=== PATIENT | female | born 1970 | race Caucasian/White ===

== ENCOUNTER → 2017-09-25 | Outpatient (CLI) | payer OTHER ==
[~2017-09-25] VITALS: Ht 177.8 cm; Wt 74.4 kg
[~2017-09-25] MED LIST: ALPRAZOLAM 0.50.5 M1 PO; AUGMENTIN 875-1 EACH PO; BACLOFEN20 MG PO; CIPROFLOXACIN500 M1 PO; CYMBALTA60 MG PO; ESTRODIAL PO; FLEXERIL PO; HYDROCODON-ACE1 EAC8 PO; IBUPROFEN 600600 M1 PO; KADIAN30 MG PO; LIORESAL 10 MG10 MG PO; MACROBID 100 M100 M1 PO; MS CONTIN30 MG PO; NABUMETONE 500500 M1 PO; NORCO 5-325 TA1 EACH PO; PERCOCET 5-3251 EACH PO; PROGESTERONE100 MG PO; TIZANIDINE HCL2 M1 PO; TIZANIDINE HCL4 M1 PO; TOPAMAX200 MG PO; ZOFRAN ODT4 MG PO
--- NOTE | ~2017-09-25 | HPC ---
[facility] [place] [address] PAIN MANAGEMENT CONSULTATION Name: DIEGOBENJIJAMEL EMILEE [facility] #: [facility] [id number] Admission: 09/25/17 Attend Phys: Kalen Avitia DO Discharge: Date of : 68 Report #: [id number] THIS REPORT FOR: //name// CC: Kalen Medeiros DO DATE OF SERVICE: 09/25/2017 REFERRING PHYSICIAN: Anson Medeiros D.O. CHIEF COMPLAINT: Axial back pain. HISTORY OF PRESENT ILLNESS: As you know, the patient is a 47-year-old female who returns today in followup visit with recurrent low back pain. As you are aware, the patient has had a lumbar fusion at the L4-L5 level. This has left the patient with increased arthritic changes at the L5-S1 level, the L3-L4 level and the L2-L3 level. She has done very well with medial branch nerve blocks, radiofrequency lesioning getting up to near a year of improvement in symptoms with radiofrequency lesioning. She returns with recurrent low back pain. No inciting injury or trauma. She is now placing pain score around the 8/10. She has returned per the request of her PCP to begin the process of radiofrequency lesioning. She also wishes to discuss more definitive treatment options. ALLERGIES: FENTANYL. CURRENT MEDICATIONS: Tizanidine 2 mg 3 times a day, baclofen 10 mg twice a day, MS Contin 30 mg twice a day, nabumetone 500 mg once a day, alprazolam 0.5 mg 3 times a day, progesterone micronized 100 mg once a day, estradiol 0.5 mg once a day, hydrocodone/acetaminophen 7.5/325 three times a day, topiramate 200 mg once a day and duloxetine 60 mg once a day. SOCIAL HISTORY: The patient reports she is a continued smoker. Denies IV or illicit drug use. Denies any chronic alcohol use. She is unaccompanied today. IMAGING DATA: No new imaging available. PQRS: The patient has osteoarthritis. No rheumatoid arthritis. She is placing pain score today at 8/10. She is not a fall risk, has not had a fall last 3 months. She is not on blood thinners. She is not treated for hypertension. She has been on opioids for very long period of time. She has a moderate opioid risk assessment for addiction. Functional assessment tool, pain impact score shows 57/70, severe interference. PHYSICAL EXAMINATION: VITAL SIGNS: Blood pressure 106/70, pulse 66 and respiratory rate [address] [address] PAIN MANAGEMENT CONSULTATION Name: JAMEL BROWN Room #: REG [facility].#: [id number] Admission: 09/25/17 Attend Phys: Kalen Avitia DO Discharge: Date of : 68 Report #: [id number] unlabored. The patient is 98% on room air. Height 5 feet 10 inches tall, weight 164 pounds and BMI calculated 23.5. GENERAL: Well-developed, well-nourished, well-hydrated 47-year-old female, appears older than stated age, smells of tobacco smoke, placing current pain score at 8/10. HEENT: Normocephalic and atraumatic. Pupils equal, round and reactive to light. Extraocular muscles are intact. Speech fluent. LUNGS: Decreased breath sounds bilaterally. Prolonged expiratory phase. CARDIOVASCULAR: Regular. No appreciable gallop or rub. ABDOMEN: Soft and nontender. EXTREMITIES: Show no clubbing, no cyanosis and no edema. MUSCULOSKELETAL: Seated straight leg raising negative. Supine straight leg raising negative. Earnestine's test negative. Modified Gaenslen's positive for axial low back pain. There is palpatory tenderness over the lower lumbar region. There is restriction of motion with forward flexion, extension and lateral flexion. ASSESSMENT: 1. Lumbosacral spondylosis without radiculopathy. 2. Myofascial pain. 3. Chronic intractable pain. PLAN: 1. The patient returns today in followup visit reporting pain score around 8/10. She reports near 100% improvement in overall pain with the medial branch nerve blocks and radiofrequency lesioning from nearly 1 year 2 months ago. She returns with progressively worsening low back pain due to facet arthropathy. We have discussed the possibility of having the patient undergo repeat medial branch nerve blocks. If these are effective, then undergo staged radiofrequency lesioning with lesioning to begin on the right side, her most problematic side and then progressing to the left side. This will be done over the next couple of weeks. This will be based on the fact that the patient shows significant improvement with medial branch nerve blocks today. After this discussion of the potential treatment options provided through our services, we also discussed the possibility of having the patient undergo rhizotomy, which would provide a long-term benefit completely ablating the medial branch nerves surgically. This will be done with her neurosurgeon. After this long discussion, the patient chose to begin with the radiofrequency lesioning. If this is ineffective, then move forward with potential rhizotomy. The patient was consented and will perform medial branch nerve blocks in the lumbar region. We have advised the patient of the risks and benefits of the procedure. These risks include but are not necessarily limited to bleeding, bruising, infection, worsening pain, no relief of pain, also risk of temporary or permanent muscle weakness, temporary or permanent nerve damage, possible paralysis and . The patient states understood and wished to proceed. 2. No medication changes were made at today's visit. The patient will continue [address] [address] PAIN MANAGEMENT CONSULTATION Name: Lacey BROWNVEJULISSA HEBERT Room #: REG Birgit Whipple.#: [id number] Admission: 09/25/17 Attend Phys: Kalen Avitia DO Discharge: Date of : 68 Report #: [id number] current medical therapy as previously prescribed. 3. The patient will return to our clinic in 1 week to begin radiofrequency lesioning, will be lesioning the right side initially at the L2 level, L3 level and the L5 level to address her ongoing issues and 2 weeks later, we will follow with the left side. PROCEDURE NOTE DESCRIPTION OF PROCEDURE: Bilateral L2-L3, L3-L4 and L5-S1 lumbar medial branch nerve blocks. This is the first of 2 diagnostic medial branch blocks on the right and left side that the patient is undergoing. After obtaining written consent, the patient was taken back to the fluoroscopy suite and placed in a prone position on the fluoroscopy table with a pillow under the abdomen to decrease the lumbar lordosis. The skin overlying the lumbosacral area was prepped and draped in an aseptic fashion. The L3 transverse process corresponding the L2 medial branch nerve, L4 transverse process corresponding the L3 medial branch nerve on the bilateral side was visualized under AP fluoroscopy. The skin and subcutaneous tissue overlying the target sites of injection 22-gauge 3-1/2 inch was anesthetized using 2 mL of 1% lidocaine. A bent spinal needle with a 0.3 mL tip was advanced under fluoroscopic guidance using a superior to inferior and lateral to medial approach to the dorsal, superior and medial aspect of the base of the transverse process. The needles were then directed ventral, medial and caudad to reach the target locations. An oblique view facilitated needle placement with properly positioned needles in the middle of the "eye" of the Sung dog for the medial branch blocks. At each site the needle rested on periosteum. After negative aspiration for heme or CSF, 0.5 mL of Omnipaque dye was injected at each site under live fluoroscopy, demonstrating absence of vascular uptake. After negative aspiration for heme or CSF, bupivacaine of 0.5% was slowly injected at each site to avoid forcing the solution away from the target points. The needles were then removed. The L5 dorsal ramus block on the right and left sides were performed using a slightly oblique approach under fluoroscopic guidance, placing the needle within the groove between the sacral site and the superior articular process of S1. The needle rested on periosteum. After negative aspiration for heme or CSF, 0.3 mL of Omnipaque dye was injected at under live fluoroscopy, demonstrating absence of vascular uptake. After negative aspiration for heme or CSF, 0.5% of bupivacaine 0.5% was slowly injected to avoid forcing the solution away from the target point. The needle was then removed. Sterile bandages were placed over the injection site. There were no apparent complications. The patient tolerated the procedure well [address] [address] PAIN MANAGEMENT CONSULTATION Name: DIEGOJAMEL LEBLANC EMILEE Room #: REG [facility] Barnes#: [id number] Admission: 09/25/17 Attend Phys: Kalen Avitia DO Discharge: Date of : 68 Report #: [id number] and was carefully escorted to the recovery room in stable condition. The VAS was 8/10 before the procedure and 3/10, 10 minutes after the procedure. After meeting discharge criteria, the patient was discharged home. By: [id number] Kalen Avitia DO /marzena
[2017-09-25 08:32] VITALS: BP 106/70
== END | disposition home or self-care (01) ==
LOC: PAIN 06:56
DX: M47.817 Spondylosis without myelopathy or radiculopathy, lumbosacral region (principal); M79.1 Myalgia; G89.29 Other chronic pain; Z79.899 Other long term (current) drug therapy; Z88.8 Allergy status to other drugs, medicaments and biological substances; M19.90 Unspecified osteoarthritis, unspecified site; F17.200 Nicotine dependence, unspecified, uncomplicated

== ENCOUNTER → 2017-10-02 | Outpatient (CLI) | payer OTHER ==
[~2017-10-02] VITALS: Ht 177.8 cm; Wt 74.4 kg
--- NOTE | ~2017-10-02 | HPC ---
[facility] [place] [address] PAIN MANAGEMENT CONSULTATION Name: JAMEL BROWNN Room #: REG [facility].Aman.#: [id number] Admission: 10/02/17 Attend Phys: Kalen Avitia DO Discharge: Date of : 68 Report #: [id number] THIS REPORT FOR: //name// CC: Kalen Medeiros DO DATE OF SERVICE: 10/02/2017 REFERRING PHYSICIAN: Anson Medeiros DO CHIEF COMPLAINT: Axial back pain. HISTORY OF PRESENT ILLNESS: As you know, the patient is a 47-year-old female who returns today in followup visit having undergone bilateral L2, L3 and L5 medial branch nerve blocks at last visit. She reports near 100% improvement in overall pain lasting for hours. She returns today to begin radiofrequency lesioning of these same medial branch nerves. She wishes to start on the right side today as this is the main pain generator and then move towards the left side 2 weeks from today. She indicates today pain level of 5/10. She returns to undergo the procedure in hopes of improving pain. ALLERGIES: FENTANYL. CURRENT MEDICATIONS: Tizanidine, baclofen, MS Contin, nabumetone, alprazolam, progesterone, estradiol, hydrocodone, topiramate, and duloxetine. SOCIAL HISTORY: The patient is a continued smoker. She denies IV or illicit drug use. Denies any chronic alcohol use. She is unaccompanied today. IMAGING: No new imaging available. PQRS: Positive for osteoarthritis. Negative for rheumatoid arthritis. She is placing pain score today 5/10. She is not a fall risk, has not had a fall in the last 3 months. She is not on blood thinner. She is not treated for hypertension. She has been on opiates for greater than 6 weeks. She has a moderate risk of opioid abuse. Her functional assessment pain impact score 57/70. PHYSICAL EXAMINATION: VITAL SIGNS: Blood pressure 104/69, pulse 77, respiratory rate 16 and unlabored, the patient is 98% on room air, height 5 feet 10 inches tall, weight 164 pounds, BMI calculated 23.5. GENERAL: Well-developed, well-nourished, well-hydrated 47-year-old female, appearing her stated age, placing current pain score at 5/10. HEENT: Normocephalic, atraumatic. Pupils are equal, round, and reactive to [address] [address] PAIN MANAGEMENT CONSULTATION Name: JAMEL BROWN Room #: REG [facility] Sarabjit.#: [id number] Admission: 10/02/17 Attend Phys: Kalen Avitia DO Discharge: Date of : 68 Report #: [id number] light. EXTREMITIES: Show no clubbing, no cyanosis, and no edema. MUSCULOSKELETAL: Seated straight leg raising negative. Supine straight leg raising negative. Rashel's test negative. Modified Gaenslen's positive for axial low back pain. Ankle clonus negative. Babinski is negative. Restriction of motion with forward flexion, extension, and lateral flexion of the lumbar spine, well-healed surgical scars. ASSESSMENT: 1. Lumbosacral spondylosis without radiculopathy. 2. Myofascial pain. 3. Chronic intractable pain. PLAN: 1. The patient returns today in followup visit having noted 100% improvement in overall pain with the medial branch nerve blocks provided at last visit. She reports this lasted for hours and then slowly returned to normal. She returns requesting to begin RFA of the medial branch nerves on the right with a 2-week followup for RFA on the left. The patient has been advised of the risks and benefits of the procedure, states understood and wished to proceed. 2. No medication changes were made at today's visit. The patient will continue current medical therapy as previously prescribed. 3. We will see the patient back in followup visit in 2 weeks to undergo radiofrequency lesioning on the left side. PROCEDURE NOTE DESCRIPTION OF PROCEDURE: Right L2, L3, and L5 medial branch radiofrequency ablations. Procedure was explained and informed consent was obtained from the patient. The patient was informed of the risks of the procedure including infection, bleeding, nerve damage, failure to produce pain relief and postoperative discomfort lasting for several weeks. After obtaining written consent, the patient was then taken to the fluoroscopy suite, placed in prone position with pillow under abdomen to decrease lumbar lordosis. Skin overlying the lumbosacral area then prepped and draped in aseptic fashion. AP imaging of the lumbar spine was used to identify the L2 through L5 vertebral bodies and the sacral ala. Target location on the right side of the L3 vertebral body corresponding to the L3 medial branch nerve and the L4 vertebral body corresponding to the L3 medial branch nerve were established. Using a 25-gauge 1-1/4-inch needle, skin wheals were placed at the junction of the transverse process and the respective superior articular process with 1 mL of 1% lidocaine. We were careful to anesthetize skin and not the deep tissues. The radiofrequency lesioning needles were then brought into position under [address] [address] PAIN MANAGEMENT CONSULTATION Name: JAMEL BROWN Room #: REG [facility] Barnes#: [id number] Admission: 10/02/17 Attend Phys: Kalen Avitia DO Discharge: Date of : 68 Report #: [id number] fluoroscopic guidance using a superior to inferior and lateral to medial approach to the dorsal superior and medial aspect to the base of the transverse processes. The needles were then directed caudally to reach target locations. Oblique views facilitated needle placement. At each site, needles rested on periosteum. Touching the bone initially assured the needles were not placed too deeply. We next anesthetized the area just overlying the L5-S1 right side of facet. We used 1 mL of 1% lidocaine. We were careful not to anesthetize the deep tissues. The radiofrequency lesioning needle was then brought into position on the right side using a superior to inferior and lateral to medial approach, placing the needle between the groove, between the sacral ala and the superior articular process of S1. Needle rested on periosteum. Stimulation was performed at each level once the cannulas were in position. Sensory stimulation performed at L2, L3 and L5 levels on the right side with good impedance. Medial branch nerves were noted to be stimulated at 0.4, 0.4 and 0.4 respectively. Impedance was noted at 150, 130 and 170 respectively. Good stimulation of the lumbar and buttock region was elicited indicating correct alignment with the posterior primary ramus. Absence of motor fasciculation noted at 3 volts 2 Hz stimulation during testing of the L2, L3, and L5 medial branch nerves respectively. Following this affirmation of dissociation between sensory and motor stimulation, negative aspiration noted at all levels. Next, 1 mL of bupivacaine 0.5% was injected. After a 90-second delay, lesions were performed at 80 degrees Celsius for 90 seconds. [place] were then cooled. They were subsequently adjusted and the stylets were removed. Next, 1 mL of a solution containing 1 mL 40 mg per mL, 40 mg total triamcinolone and 2 mL bupivacaine 0.5% was injected slowly. [place] were flushed with 0.5 mL of lidocaine 1% and removed sequentially. At the end of the procedure, the patient was noted to be able to move all 4 extremities purposefully. The patient tolerated the procedure well, carefully escorted to the recovery room in stable condition. No apparent complications. After meeting discharge criteria, the patient discharged home. <ELECTRONICALLY SIGNED> By: Kalen Avitia DO 10/03/17 [id number] Kalen Avitia DO /nt
[2017-10-02 09:11] VITALS: BP 104/69
== END | disposition home or self-care (01) ==
LOC: PAIN 07:16
DX: M47.817 Spondylosis without myelopathy or radiculopathy, lumbosacral region (principal); G89.29 Other chronic pain; M79.1 Myalgia; M19.90 Unspecified osteoarthritis, unspecified site; F17.210 Nicotine dependence, cigarettes, uncomplicated; Z87.19 Personal history of other diseases of the digestive system; Z79.891 Long term (current) use of opiate analgesic; Z98.890 Other specified postprocedural states; Z79.899 Other long term (current) drug therapy; Z88.8 Allergy status to other drugs, medicaments and biological substances

== ENCOUNTER → 2017-10-16 | Outpatient (CLI) | payer OTHER ==
[~2017-10-16] VITALS: Ht 177.8 cm; Wt 71.7 kg
[~2017-10-16] MED LIST changes: +MEDROLDOSEPACK PO
--- NOTE | ~2017-10-16 | HPC ---
[facility] [place] [address] PAIN MANAGEMENT CONSULTATION Name: CLEOBINAJAMEL LEBLANC EMILEE [facility] [id number] Admission: 10/16/17 Attend Phys: Kalen Avitia DO Discharge: Date of : 68 Report #: [id number] THIS REPORT FOR: //name// CC: Kalen Medeiros DO DATE OF SERVICE: 10/16/2017 REFERRING PHYSICIAN: Dr. Medeiros. CHIEF COMPLAINT: Axial back pain. HISTORY OF PRESENT ILLNESS: As you know, the patient is a 47-year-old female who returns today in followup visit for the second of the staged radiofrequency lesioning to address the medial branch nerves of the lower lumbar spine. As you are aware, the patient suffers from chronic axial back pain due to increasing facet arthropathy related to her fusion 9 years ago. She has completed the right L2, L3, L5 medial branch nerve ablations at our last visit with improvement in pain. She returns today in followup visit to complete the left side, addressing the L2, L3 and L5 medial branch nerves. She is placing her pain score today at around 5/10. ALLERGIES: FENTANYL. CURRENT MEDICATIONS: Tizanidine, baclofen, MS Contin, nabumetone, alprazolam, progesterone, estradiol, hydrocodone, topiramate, duloxetine. SOCIAL HISTORY: The patient continues to smoke. She denies IV or illicit drug use. Denies any chronic alcohol use. She is unaccompanied today. IMAGING: No imaging available. PQRS: The patient has osteoarthritis, negative rheumatoid arthritis. She is placing pain today at 5/10. She is not a fall risk, has not had a fall in last 3 months. She is not on blood thinners. She is not treated for hypertension. She has been on opioids for greater than 6 weeks, moderate risk of opioid abuse. Functional assessment indicates pain impact score of 57/70, severe near complete interference. PHYSICAL EXAMINATION: VITAL SIGNS: Blood pressure 105/63, pulse is 80, respiratory rate 14 and unlabored. The patient is 97% on room air. Height 5 feet 10 inches tall, weight 158 pounds, BMI calculated 22.7. GENERAL: Well-developed, well-nourished, well-hydrated 47-year-old female, appears older than stated age, placing pain score 5/10. [place] [address] PAIN MANAGEMENT CONSULTATION Name: JAMEL BROWN Room #: REG [facility]#: [id number] Admission: 10/16/17 Attend Phys: Kalen Avitia DO Discharge: Date of : 68 Report #: [id number] HEENT: Normocephalic, atraumatic. Pupils equal, round, reactive to light. EXTREMITIES: Show no clubbing, no cyanosis, no edema. MUSCULOSKELETAL: Seated straight leg raising negative. Supine straight leg raising negative. Rashel's test negative. Modified Gaenslen's positive for axial low back pain. There is a well-healed surgical scar over the lower lumbar spine. ASSESSMENT: 1. Lumbosacral spondylosis without radicular symptoms. 2. Myofascial pain. 3. Chronic intractable pain. PLAN: 1. The patient has returned today in followup visit for the second portion of the staged procedure to address the medial branch nerves of the lower lumbar spine. The patient has been advised of the risks and the benefits of a radiofrequency lesioning of the left L2, L3 and L5 medial branch nerves. The patient states she understood and did wish to proceed. 2. No medication changes made at today's visit. The patient to continue current medical therapy as previously prescribed. 3. We will see the patient back in followup visit on an as-needed basis. PROCEDURE NOTE DESCRIPTION OF PROCEDURE: Left L2, L3, and L5 medial branch radiofrequency ablations. Procedure was explained and informed consent was obtained from the patient. The patient was informed of the risks of procedure including infection, bleeding, nerve damage, failure to produce pain relief and postoperative discomfort lasting for several weeks. After obtaining written consent, the patient was taken to the fluoroscopy suite, placed in prone position with pillow under abdomen to decrease lumbar lordosis. Skin overlying lumbosacral area then prepped and draped in aseptic fashion. AP imaging of the lumbar spine was used to identify the L2 through L5 vertebral bodies and the sacral ala. Target location on the left side of the L3 vertebral body corresponding to the L2 medial branch nerve and the L4 vertebral body corresponding to the L3 medial branch nerve were established. Using a 25-gauge, 1-1/4 inch needle, skin wheals were placed at the junction of the transverse process and the respective superior articular process with 1 mL of 1% lidocaine. We were careful to anesthetize skin and not the deep tissues. The radiofrequency lesioning needles were then brought into position under fluoroscopic guidance using a superior to inferior, lateral to medial approach to the dorsal superior and medial aspect of the base of the transverse processes. [place] were then directed caudally to reach target location. [address] [address] PAIN MANAGEMENT CONSULTATION Name: JAMEL BROWN Room #: REG [facility] Barnes#: [id number] Admission: 10/16/17 Attend Phys: Kalen Avitia DO Discharge: Date of : 68 Report #: [id number] Oblique view facilitated needle placement. At each site, needles rested on periosteum. Touching the bone initially assured that needles were not placed too deeply. We next anesthetized the area just overlying the L5-S1 facet joint of the left side. We used 1 mL of 1% lidocaine. We were careful not to anesthetize the deep tissues. Radiofrequency lesioning needle was then brought into position on the left side using a superior to inferior, lateral to medial approach, placing the needle within the groove between the sacral ala and the superior articular process of S1. Needle rested on periosteum. Stimulation was performed at each level once the cannulas were in position. Sensory stimulation performed at L2, L3 and L5 on the left side with good impedance. Medial branch nerves were noted to be stimulated at 0.3, 0.4, 0.3 respectively. Impedance was noted at 250, 188, and 189 respectively. Good stimulation of the lumbar and buttock region was elicited, indicating correct alignment with the posterior primary ramus. Absence of motor fasciculation noted at 3 volts 2 Hz stimulation during testing of the L2, L3 and L5 medial branch nerves respectively. Following this affirmation of disassociation between sensory and motor stimulation, negative aspiration noted to be at all levels. Next, 1 mL bupivacaine 0.5% injected after a 90 second delay, lesions were performed at 80 degrees Celsius for 90 seconds. [place] were then cooled. A solution containing 1 mL 40 mg per mL, 40 mg total triamcinolone, 2 mL bupivacaine 0.5% injected at each of the sites with 1 mL being given at each level. [place] were then flushed with 0.5 mL lidocaine 1% and removed sequentially. Sterile bandages were placed over each injection sites. The patient was noted to be able to move all 4 extremities purposely after procedure. The patient tolerated procedure well, carefully escorted to recovery room in stable condition. No apparent complication. After meeting our discharge criteria, the patient discharged home. By: [id number] Kalen Avitia DO /nt
[2017-10-16 09:47] VITALS: BP 105/63
== END | disposition home or self-care (01) ==
LOC: PAIN 06:35
DX: M47.817 Spondylosis without myelopathy or radiculopathy, lumbosacral region (principal); M79.1 Myalgia; G89.29 Other chronic pain; M19.90 Unspecified osteoarthritis, unspecified site; F17.210 Nicotine dependence, cigarettes, uncomplicated; Z79.891 Long term (current) use of opiate analgesic; Z79.899 Other long term (current) drug therapy; Z88.8 Allergy status to other drugs, medicaments and biological substances

== ENCOUNTER 2021-05-23 12:36 | Emergency (ER) | payer OTHER ==
[~2021-05-23] VITALS: Ht 177.8 cm; Wt 77.1 kg
[2021-05-23 12:52] VITALS: BP 119/75
== END 2021-05-23 15:08 | disposition home or self-care (01) ==
LOC: ER 12:36
DX: M79.672 Pain in left foot (principal); M79.671 Pain in right foot; Z79.899 Other long term (current) drug therapy; Z98.51 Tubal ligation status; Z98.890 Other specified postprocedural states